=== PATIENT | male | born 1975 | race African-American/Black ===

== ENCOUNTER 2021-04-24 18:06 | Inpatient (IN) | payer BC ==
[~2021-04-24] VITALS: Ht 182.9 cm; Wt 89.4 kg
[~2021-04-24 18:06] MED LIST: NOHOMEMEDICATIONS; NORVASC5 MG PO
[2021-04-24 18:07] VITALS: BP 136/86
[2021-04-24 19:43] LABS: ABSOLUTE NEUTROPHILS 5.7 thou/uL (1.4-8.2); EOSINOPHILS 0.3 % (0.0-3.0); HEMATOCRIT 44.3 % (42.0-52.0); HEMOGLOBIN 15.3 gm/dL (14.0-18.0); LYMPHOCYTES 24.4 % (24.0-44.0); MCH 31.2 pg (26.0-34.0); MCHC 34.5 g/dL (28.0-37.0); MCV 90.6 fL (80.0-100.0); PLATELET COUNT 237 thou/uL (150-400); POLYS 69.3 % (36.0-66.0); RBC 4.89 mil/uL (4.50-6.00); RDW 12.6 % (10.5-14.5); WBC 8.3 thou/uL (4.0-11.0)
[2021-04-24 19:51] LABS: CALCIUM 8.5 mg/dL (8.5-10.1); CREATININE 1.3 mg/dL (0.7-1.3)
[2021-04-24 19:57] LABS: ALBUMIN 4.7 g/dL (3.4-5.0); TOTAL BILIRUBIN 0.4 mg/dL (0.2-1.0); TOTAL PROTEIN 8.6 g/dL (6.4-8.2)
[2021-04-24 20:00] LABS: POTASSIUM 4.6 mmol/L (3.5-5.1)
[2021-04-24 22:58] VITALS: BP 167/101
[2021-04-24 23:23] VITALS: BP 162/96
[2021-04-25 00:07] VITALS: BP 185/98
--- NOTE | 2021-04-25 01:55 | NUR ---
PT ARRIVED FROM ER AT MIDNIGHT. A&OX4 ADMISSION DONE AND PT ORIENTED TO THE UNIT. C/O PAIN IN RT FOOT IV MORPINE GIVEN. WOUND PICTURE TAKEN RIGHT FOOT SKIN. WET TO DRY DRESSING DONE. PT NPO AT MIDNIGHT FOR POSSIBLE SX INN THE MORNING. LEFT AC IV INTACT. ENCOURAGED PT TO CALL. FALL PREC IN PLACE AND WIILL CONT TO MONITOR.
[2021-04-25 04:39] VITALS: BP 122/74
[2021-04-25 08:08] VITALS: BP 164/99
--- NOTE | 2021-04-25 14:27 | NUR ---
PT ASSESSED AT START OF SHIFT. DR. GOODMAN IN EARLY TO SEE PT AND CHANGED DSNG ON FOOT. DRS. GRESHAM AND MARGUERITE IN TOGETHER THIS AFTERNOON TO SEE PT AND DISCUSS PLAN. FOOT REDRESSED BY DR. GRESHAM. PT WILL BE NPO AFTER MIDNOC FOR POSSIBLE SURGERY BY DR. BRADSHAW IN AM. IV ANTIBIOTICS.
[2021-04-25 15:26] VITALS: BP 178/100
[2021-04-25 20:30] VITALS: BP 191/117
[2021-04-25 22:30] VITALS: BP 160/101
--- NOTE | 2021-04-26 03:25 | NUR ---
PT NPO AT MIDNIGHT FOR SX TOMORROW. IV INTACT AND ABX GIVEN. PO AND IV PAIN MEDS PROVIDED SEE EMAR. URINAL AT BEDSIDE. FALL PREC IN PLACE AND CALL LIGHT AT REACH, WILL CONT TO MONITOR.
[2021-04-26 04:20] VITALS: BP 159/97
[2021-04-26 07:20] VITALS: BP 180/104
--- NOTE | 2021-04-26 09:15 | NUR ---
Chart review. Going to surgery today. CM visited with winston and his sig other at bedside. Cm cont to wear face mask and shield during visit. Intro to cm and discharge planning. Winston reported lives home with sig other, in house 10 step up to front door and 10 steps with 1 handrail into home from garage level. 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 no hh or rehab in past. Fall off latter cleaning out the gutters per winston. Will cont following as needed for dc needs.
[2021-04-26 14:05] VITALS: BP 181/114
--- NOTE | 2021-04-26 18:47 | NUR ---
PATIENT ALERT AND ORINTED X4, ON ROOM AIR, WENT TO PROCEDURE TODAY, TOLDERATING DIET WELL, PAIN MEDICATIONS GIVEN PER MAR, VITAL SIGNS STABLE, AND AFBRIELE. CALL LIGHT IS WITH IN REACH, WILL CONTINUE TO MONITOR.
[2021-04-26 19:28] VITALS: BP 172/109
[2021-04-27 02:19] VITALS: BP 162/102
[2021-04-27] MEDS ORDERED: PROTONIX40 M2 PO (02:37)
[2021-04-27 05:46] VITALS: BP 174/105
[2021-04-27 06:02] LABS: MCH 30.7 pg (26.0-34.0); MCHC 33.7 g/dL (28.0-37.0); MCV 91.3 fL (80.0-100.0); RBC 4.16 mil/uL (4.50-6.00); RDW 12.4 % (10.5-14.5); WBC 12.6 thou/uL (4.0-11.0)
[2021-04-27 06:11] LABS: ALBUMIN 3.6 g/dL (3.4-5.0); CALCIUM 8.8 mg/dL (8.5-10.1); CREATININE 1.1 mg/dL (0.7-1.3); PHOSPHORUS 2.8 mg/dL (2.5-4.9); POTASSIUM 4.2 mmol/L (3.5-5.1)
[2021-04-27 06:15] LABS: HEMOGLOBIN 12.8 gm/dL (14.0-18.0)
[2021-04-27 07:20] VITALS: BP 166/86
--- NOTE | 2021-04-27 07:51 | NUR ---
patient had high blood pressure called production hand new order given. pain controlled this shift. fall precaution this shift. patient in bed asleep at this time breathing regular and unlaboured.
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
--- NOTE | 2021-04-27 11:16 | NUR ---
PATIENT ALERT AND ORINTED X4, ON ROOM AIR, UP WITH ASSIST, VOIDS PER UNRINAL, PAIN MEDICATION GIVEN PER MAR, VITAL SIGNS STABLE, AND AFBRIELE. CALL LIGHT WITH IN REACH WILL CONTINUE TO MONIOR.
--- NOTE | 2021-04-27 11:58 | NUR ---
on-going assessment: CM REVIEWED CHART. PT IS HAVING MRI TODAY AND PLANS FOR SURGERY TOMORROW. CM WILL CONTINUE TO FOLLOW TO ASSIST NEEDED.
[2021-04-27 16:15] VITALS: BP 131/79
[2021-04-27 19:50] VITALS: BP 140/91
--- NOTE | 2021-04-28 00:09 | NUR ---
PATIENT A&OX4. VERY PLEASANT. 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 PRESENT WITH PATIENT UNTIL VISITING HOURS OVER. COMPLAINTS OF PAIN. PRN PAIN MEDICATION GIVEN. PATIENT NOT RECEPTIVE TO BED ALARMS. EDUCATION GIVEN. PATIENT CONTINUES TO GET UP ALONE. NPO AFTER MIDNIGHT FOR PROCEDURE TODAY. WILL CONTINUE TO MONITOR.
[2021-04-28 03:55] VITALS: BP 150/89
[2021-04-28 08:40] VITALS: BP 152/96
--- NOTE | 2021-04-28 13:52 | O ---
[facility] [place] [address] OPERATIVE REPORT Name: GOMEZTOBI D Room #: 443-P [facility] IN ..#: [id number] Admission: 04/24/21 Attend Phys: Jaylen Guzman, Discharge: Date of : 73 Report #: [id number] THIS REPORT FOR: cc: Jose Colvin MD [facility] - Family physician unknown Diomedes Mcginnis MD ~ DATE OF SERVICE: 04/26/2021 PREOPERATIVE DIAGNOSES: 1. Right navicular cuneiform dislocation with open wound. 2. Right calcaneus fracture. POSTOPERATIVE DIAGNOSES: 1. Right navicular cuneiform dislocation with open wound. 2. Right calcaneus fracture. PROCEDURE: Right foot irrigation and debridement with wound closure, open reduction of right navicular cuneiform dislocation. SURGEON: Diomedes Mcginnis M.D. STUDY ASSISTANT: None. ANESTHESIA: General. ESTIMATED BLOOD LOSS: Minimal. DRAINS: No drains. TOURNIQUET TIME: 30 minutes. DESCRIPTION OF PROCEDURE: The patient brought to the operating room where he was placed under general anesthesia. Once under adequate general anesthesia, his right lower extremity was prepped and draped in a sterile manner. The extremity was elevated, exsanguinated, and a tourniquet placed to 300 mmHg. The patient had an open wound on his medial mid foot, overlying the navicular cuneiform joint. This was then extended proximally to expose the posterior tibial tendon, which was noted to be intact. The wound was irrigated copiously through the navicular cuneiform joint as well as plantarward. Once complete, it was closed with 2-0 nylon suture in a simple stitch manner. The navicular cuneiform joint was reduced with a varus producing maneuver through the foot, did appear to be stable enough not to pin at this point. The plan is to return to the operating room in a couple of days for further definitive fixation. The wound was then dressed with Xeroform, 4 x 4's, and a sterile soft compressive dressing was placed along with a splint. Tourniquet was let down at approximately 30 minutes. Toes are pink and warm. Good capillary refill. [facility] [address] [place] [address] OPERATIVE REPORT Name: TOBI GOMEZ Room #: 443-P [facility] IN [facility].#: [id number] Admission: 04/24/21 Attend Phys: Jaylen Guzman, Discharge: Date of : 73 Report #: [id number] There were no complications from the procedure. The patient tolerated the procedure well and went to the recovery room without incident. <ELECTRONICALLY SIGNED> By: Diomedes Mcginnis MD 04/28/21 1352 [id number] Diomedes Mcginnis MD /nt
--- NOTE | 2021-04-28 14:29 | NUR ---
POST-OP ORDERS RECEIVED FOR NWB WITH CRUTCHES. Pt WAS EVALUATED YESTERDAY FOR CRUTCH TRAINING NWB AND Pt IS SAFE WITH CRUTCHES. WILL DEFER ANOTHER EVAL AT THIS TIME. Pt IS SAFE FOR HOME WHEN MEDICALLY CLEAR
--- NOTE | 2021-04-28 15:10 | NUR ---
PT DOES NOT FEEL NEEDS OT, CAN WALK INDEPENDENTLY WITH WALKER AND/OR CRUTCHES. PLAN IS TO GO HOME THIS EVENING. CONVERSATION WITH RN WHILE PT IN SURGERY
[2021-04-28 15:40] VITALS: BP 145/95
--- NOTE | 2021-04-28 16:03 | NUR ---
ON-GOING ASSESSMENT: CM REVIEWED CHART. PT WENT TO THE OR TODAY FOR DEFINITIVE FIXATION. PT WORKED WITH THERAPY PRIOR AND WAS SAFE WITH CRUTCHES. CM SPOKE WITH PATIENT AND HE IS NEEDING CRUTCHES FOR HOME AND HAS NO PREFERENCE OF DME COMPANY. CM NOTIFIED ISABELA AT [employer] WHO IS DELIVERING PATIENT CRUTCHES. PT REPORTS NO FURTHER NEEDS FROM JESSICA.
[2021-04-28 16:04] VITALS: BP 152/96
--- NOTE | 2021-04-28 18:35 | NUR ---
PATIENT ALERT AND ORINTED X4, ON ROOM AIR, UP WITH SBA WITH WALKER, SURGERY DONE TODAY, TOLERATING DIET WELL, VITAL SIGNS STABLE, AND AFBRIELE. CALL LIGHT WITH IN REACH, WILL CONTINUE TO MONITOR.
[2021-04-28 19:07] VITALS: BP 148/90
--- NOTE | 2021-04-29 | NUR ---
PATIENT A&OX4. COMPLAINTS OF PAIN TO RIGHT FOOT. FOOT ELEVATED, ICE PACK APPLIED, AND PRN PAIN MEDICATION GIVEN. PATIENT HAD SURGERY TODAY. ABLE TO WIGGLE TOES ON EFFECTED LIMB. PATIENT AMBULATING WITH STANDBY ASSIST TO RESTROOM. FALL PRECAUTIONS REMAIN IN PLACE. SCD'S IN PLACE. PATIENT HAS PERIODS OF GETTING UP TO THE RESTROOM WITHOUT ASSISTANCE. EDUCATION GIVEN AGAIN IN REGARD TO CALLING FOR ASSISTANCE. WILL CONTINUE TO MONITOR.
[2021-04-29 03:32] LABS: HEMATOCRIT 35.2 % (42.0-52.0); HEMOGLOBIN 11.9 gm/dL (14.0-18.0)
[2021-04-29 03:51] LABS: POTASSIUM 3.8 mmol/L (3.5-5.1)
[2021-04-29 04:07] VITALS: BP 130/71
[2021-04-29 07:13] VITALS: BP 154/82
[2021-04-29 09:48] VITALS: BP 154/82
--- NOTE | 2021-04-29 10:40 | NUR ---
ASSUMED PT CARE THIS AM. PT A&OX4, ABLE TO MAKE NEEDS KNOWN. IV PATENT, SALINE LOCKED. PATIENT REPORTS PAIN THAT DECREASES WITH PAIN MEDS GIVEN PER EMAR. RIGHT LOWER EXTREMITY IN A CAST, ELEVATED ON A PILLOW. PATIENT REMAINS CONTINENT, USING A URINAL. PATIENT IS ON ROOM AIR. REPORTS NO NUMBNESS OR TINGLING. MEDICATIONS TAKEN WITHOUT ISSUE. PATIENT REFUSING BED ALARM, EDUCATED ON IMPORTANCE OF HAVING IT ON. PATIENT GETTING OUT OF BED WITHOUT CALLING FIRST. CALL LIGHT WITHIN REACH.
--- NOTE | 2021-04-29 12:28 | O ---
[facility] [place] [address] OPERATIVE REPORT Name: TOBI GOMEZ Leida Room #: 443-P [facility] IN M.R.#: [id number] Admission: 04/24/21 Attend Phys: Jaylen Guzman, Discharge: Date of : 73 Report #: [id number] THIS REPORT FOR: cc: Jose Colvin MD [facility] - Family physician unknown Diomedes Mcginnis MD ~ PREOPERATIVE DIAGNOSES: 1. Right mid foot naviculocuneiform dislocation. 2. Right foot calcaneus fracture. POSTOPERATIVE DIAGNOSES: 1. Right mid foot naviculocuneiform dislocation. 2. Right foot calcaneus fracture. PROCEDURES: 1. Right foot open reduction and internal fixation of calcaneus fracture. 2. Right foot open reduction and arthrodesis of the medial navicular cuneiform joint. 3. Right foot irrigation and debridement with wound closure of medial wound. SURGEON: Diomedes Mcginnis MD. CRUTCH MAKER: None. ANESTHESIA: General. ESTIMATED BLOOD LOSS: 10 mL. DRAINS: No drains. TOURNIQUET TIME: 90 minutes. DESCRIPTION OF PROCEDURE: The patient was brought to the operating room where he was placed under general anesthesia. Once under adequate general anesthesia, his right lower extremity was prepped and draped in a sterile manner. The extremity was elevated, exsanguinated and tourniquet placed at 300 mmHg. The patient's medial incision was opened and irrigated with abundant normal saline solution. A lateral incision was then made over the calcaneocuboid joint extending proximally. Approximately, a 7 cm incision was made. Dissection was carried down to the fractures in the calcaneus. The anterior calcaneus was impacted into ____ calcaneus in the anterior joint surface was then elevated with a [place] elevator and a Joker elevator to its absentee-shawnee position. A reduction of the navicular cuneiform joint was achieved with a large reduction tenaculum across the navicular to the cuboid thereby allowing the remainder of the cartilage surface of the anterior calcaneus to be reduced as well. Once [facility] [address] [place] [address] OPERATIVE REPORT Name: TOBI GOMEZ Room #: 443-P [facility] IN ..#: [id number] Admission: 04/24/21 Attend Phys: Jaylen Guzman, Discharge: Date of : 73 Report #: [id number] reduced, a single 4.0 cannulated screw was placed across the fracture site. This appeared to be stable. Cancellous bone graft was placed into the calcaneus just posterior to the joint surface for added stability as well. Once this was completed, a dorsal incision over the medial naviculocuneiform joint was made. This was dissected down through the soft tissue to the navicular cuneiform joint and the medial cuneiform as well as the corresponding surface of the tarsal navicular was denuded of any cartilage with osteotomes, curettes and a rongeur as well as a bur to get to a good bleeding subchondral bone surface. This was then irrigated and demineralized, bone matrix allograft was then placed into the joint with fixation then achieved with three 4.0 cannulated screws placed under fluoroscopic guidance. Excellent fixation and alignment was achieved. Once complete, the wounds were then irrigated copiously and closed with 2-0 Vicryl in the deep and subcutaneous tissues and mell for the skin dorsally and laterally. A 2-0 nylon was used in the skin medially. The wounds were dressed with Xeroform, 4 x 4's, and a sterile soft compressive dressing along with a short leg cast was placed. Tourniquet was let down at 90 minutes. Toes were pink and warm with good capillary refill. There were no complications from the procedure. The patient tolerated the procedure well and was taken to the recovery room without incident. <ELECTRONICALLY SIGNED> By: Diomedes Mcginnis MD 04/29/21 1228 [id number] Diomedes Mcginnis MD /nt
--- NOTE | 2021-04-29 13:32 | NUR ---
ON-GOING ASSESSMENT: PTS CRUTCHES WERE DELIVERED TO HIS ROOM YESTERDAY. PT SHOULD HAVE NO NEEDS FROM CM PRIOR TO DISCHARGING HOME.
[2021-04-29] MEDS ORDERED: PERCOCET 10-321 EACH PO (17:18)
[2021-04-29] MEDS ORDERED: MIRALAX17 GM PO (17:18)
== END 2021-04-29 17:59 | disposition home or self-care (01) | DRG 505 ==
LOC: ER 18:06 → EROBS 22:37 → 4S 22:37
PROVIDERS: Orthopaedic Surgery Foot and Ankle Surgery; Student in an Organized Health Care Education/Training Program; Surgery; ADMIT Surgery; ATTEND Surgery
DX: S92.021B Displaced fracture of anterior process of right calcaneus, initial encounter for open fracture (principal); I10 Essential (primary) hypertension; W11.XXXA Fall on and from ladder, initial encounter; Z20.822 Contact with and (suspected) exposure to COVID-19; Z79.899 Other long term (current) drug therapy; Y93.89 Activity, other specified; Y92.89 Other specified places as the place of occurrence of the external cause; Y99.8 Other external cause status; Z72.89 Other problems related to lifestyle
CPT/HCPCS: 10195; 50010; 50101; 50386; 51014; 51122; 51277; 51412; 52120; 53341; 53347; 56524; 56525; 56526; 57091; 57180; 62110; 62900; 64039; 70005